=== PATIENT | female | born 2005 | race Caucasian/White ===

== ENCOUNTER 2024-05-23 10:27 | Outpatient (CLI) | payer OTHER, SELFPAY ==
--- NOTE | 2024-05-23 10:36 | EST_ITS ---
Patient Info Name: Pamela Molina Age: 18 years : 2005 Gender: Female Ht: 21 in Wt: 130 lbs BSA: 1.06 m2 Exam Date: 05/23/2024 10:45 AM Exam Location: [facility] Patient Status: Outpatient Admit Date: 05/23/2024 Staff Ordering Physician: Zenobia Galicia Attending Provider: Zenobia Galicia Exercise Technologist: Lis Melvin RDCS Exercise Physician: Selvin Thomas DO Exam Type: CA stress test treadmill Study Info Indications R07.9 - Chest pain, unspecified A treadmill exercise stress test was performed. Summary 1. 1. Negative [place] exercise stress test for ischemic ST changes by ECG criteria. 2. 2. Good functional capacity, achieving 12 METs of workload. 3. 3. Appropriate HR response to exercise. 4. 4. Appropriate HR recovery at 1 minute post exercise. 5. 5. No imaging with stress testing. 6. 6. Patient informed of the above results. Protocol: [place] Stress ECG Details Stage: REST Duration (min): 1 min : 40 sec Speed (mph): 0.0 Grade (%): 0 HR (bpm): 66 SBP (mmHg): 104 DBP (mmHg): 72 METS: --- Stage: REST Duration (min): 21 min : 45 sec Speed (mph): 0.0 Grade (%): 0 HR (bpm): 82 SBP (mmHg): 104 DBP (mmHg): 72 METS: --- Stage: STAGE 1 Duration (min): 1 min : 0 sec Speed (mph): 1.7 Grade (%): 10 HR (bpm): 105 SBP (mmHg): 104 DBP (mmHg): 72 METS: --- Stage: STAGE 1 Duration (min): 2 min : 0 sec Speed (mph): 1.7 Grade (%): 10 HR (bpm): 109 SBP (mmHg): 104 DBP (mmHg): 72 METS: --- Stage: STAGE 1 Duration (min): 3 min : 0 sec Speed (mph): 1.7 Grade (%): 10 HR (bpm): 110 SBP (mmHg): 100 DBP (mmHg): 63 METS: --- Stage: STAGE 2 Duration (min): 1 min : 0 sec Speed (mph): 2.5 Grade (%): 12 HR (bpm): 123 SBP (mmHg): 100 DBP (mmHg): 63 METS: --- Stage: STAGE 2 Duration (min): 2 min : 0 sec Speed (mph): 2.5 Grade (%): 12 HR (bpm): 123 SBP (mmHg): 122 DBP (mmHg): 75 METS: --- Stage: STAGE 2 Duration (min): 3 min : 0 sec Speed (mph): 2.5 Grade (%): 12 HR (bpm): 125 SBP (mmHg): 122 DBP (mmHg): 75 METS: --- Stage: STAGE 3 Duration (min): 1 min : 0 sec Speed (mph): 3.4 Grade (%): 14 HR (bpm): 143 SBP (mmHg): 117 DBP (mmHg): 69 METS: --- Stage: STAGE 3 Duration (min): 2 min : 0 sec Speed (mph): 3.4 Grade (%): 14 HR (bpm): 151 SBP (mmHg): 117 DBP (mmHg): 69 METS: --- Stage: STAGE 3 Duration (min): 3 min : 0 sec Speed (mph): 3.4 Grade (%): 14 HR (bpm): 156 SBP (mmHg): 184 DBP (mmHg): 89 METS: --- Stage: STAGE 4 Duration (min): 1 min : 0 sec Speed (mph): 4.2 Grade (%): 16 HR (bpm): 170 SBP (mmHg): 184 DBP (mmHg): 89 METS: --- Stage: STAGE 4 Duration (min): 1 min : 9 sec Speed (mph): 4.2 Grade (%): 16 HR (bpm): 171 SBP (mmHg): 184 DBP (mmHg): 89 METS: --- Stage: RECOVERY Duration (min): 0 min : 50 sec Speed (mph): 0.0 Grade (%): 0 HR (bpm): 153 SBP (mmHg): 184 DBP (mmHg): 89 METS: --- Stage: RECOVERY Duration (min): 1 min : 50 sec Speed (mph): 0.0 Grade (%): 0 HR (bpm): 97 SBP (mmHg): 138 DBP (mmHg): 84 METS: --- Stage: RECOVERY Duration (min): 2 min : 50 sec Speed (mph): 0.0 Grade (%): 0 HR (bpm): 111 SBP (mmHg): 129 DBP (mmHg): 80 METS: --- Stage: RECOVERY Duration (min): 3 min : 50 sec Speed (mph): 0.0 Grade (%): 0 HR (bpm): 93 SBP (mmHg): 129 DBP (mmHg): 80 METS: --- Stage: RECOVERY Duration (min): 4 min : 50 sec Speed (mph): 0.0 Grade (%): 0 HR (bpm): 90 SBP (mmHg): 103 DBP (mmHg): 79 METS: --- Stage: RECOVERY Duration (min): 5 min : 1 sec Speed (mph): 0.0 Grade (%): 0 HR (bpm): 94 SBP (mmHg): 103 DBP (mmHg): 79 METS: --- Rest HR: 82 bpm Peak HR: 171 bpm Rest Sys BP: 104 mmHg Peak Sys BP: 184 mmHg Max Pred HR: 200 bpm % Max Pred HR: 86 % Target HR: 170 bpm Max RPP: 31,464 bpm*mmHg Shepard Score: 1 Termination Reason: Reached target heart rate or workload Cardiac Symptoms: Shortness of breath, Chest pain Max ST Seg Deviation: 1.80 mm Total Time: 10 min : 9 sec Rest Cheema BP: 72 mmHg Peak Cheema BP: 89 mmHg Angina Score: None Total METS: 12.1 Resting ECG Sinus rhythm. Stress ECG No ST changes. Arrhythmias None. Report Signatures
[2024-05-23 11:11] LABS: Mean Corpuscular HGB Conc 34.2 g/dl (32-36); Mean Corpuscular Hemoglobin 29.5 pg (26-34); Mean Corpuscular Volume 86.4 fl (80-100); Mean Platelet Volume 10.3 fl (7.4-10.4); Platelet Count Result 154 k/mm3 (150-375); Red Cell Distribution Width 12.3 % (11.5-14.5); White Blood Count 4.9 K/mm3 (4.5-10.0)
[2024-05-23 11:24] LABS: Alanine Aminotransferase 14 U/L (6-35); Albumin Level 4.6 g/dL (3.5-5.1); Alkaline Phosphatase 34 U/L (38-126); Anion Gap 9 mmol/L (4-12); Aspartate Amino Transferase 22 U/L (14-36); Bilirubin,Total 0.5 mg/dL (0.2-1.3); Blood Urea Nitrogen 9 mg/dL (7-17); Calcium 9.3 mg/dL (8.4-10.2); Carbon Dioxide 27 mmol/L (22-30); Chloride 103 mmol/L (98-107); Cholesterol 139 mg/dL (0-200); Estimated Glomerular Filt Rate > 60; Glucose 97 mg/dL (65-110); HDL Direct 52 mg/dL; Potassium 3.5 mmol/L (3.4-5.0); Sodium 139 mmol/L (137-145); Triglycerides 42 mg/dL (<150)
[2024-05-23 11:34] LABS: LDL Cholesterol Direct 69 mg/dL
[2024-05-23 11:36] LABS: Vitamin D 25 Hydroxy 31.8 ng/mL
--- OUTSIDE RECORDS SUMMARY | 2024-05-23 12:08 | XMS_ITS | Referral Summary ---
Author Organization [facility] Address [address] [place] [address] Care Team Providers Care Stable Attendant Name Role Phone Jose Florentino MD Primary Care Provider Allergies No known active allergies Medications ketorolac (TORADOL) 10 mg tablet Take 1 tablet (10 mg total) by mouth every 6 (six) hours as needed for pain 20 tablet 4 Active ciprofloxacin-d exAMETHasone (CIPRODEX) otic suspensionIndic ations:Acute swimmer's ear of both sides 7 drops into EACH EAR, NOT EYE, twice daily for 10 days 7.5 mL 1 4 Active Additional Information Patient not taking.Reported on 04/06/2023 Active Problems Problem Noted Date Diagnosed Date Acute swimmer's ear of both sides 03/29/2023 Assessment & Plan (04/06/2023 9:32 AM MACHINE SILVER STRIPPER): Avoid ear cleaning techniques Avoid water to ears Finish oral antibiotics Continue ear drops in the Left ear for one more week Follow up as needed Homemade swimmer's ear recipe provided Assessment & Plan (03/29/2023 11:18 AM MACHINE SILVER STRIPPER): Increase Ciprodex drops to 7-10 drops into both ears Continue Cipro tablets twice daily with a meal Avoid ear cleaning techniques Avoid water to ears Consider Tylenol 500 mg with Ibuprofen 400 mg every 4-6 hours for pain Follow up in one week Social History Tobacco Use Types Packs/Day Years Used Date Smoking Tobacco: Never Tobacco Cessation:Counseling Given: Not Answered Personal Safety Answer Date Recorded Have you ever been in or are you currently in a harmful physical or emotional relationship or is someone making you feel afraid or unsafe? Denies 03/27/2023 Comments No Sex and Gender Information Value Date Recorded Sex Assigned at Not on file Legal Sex Female 9:09 AM MACHINE SILVER STRIPPER Gender Identity Not on file Sexual Orientation Not on file Last Filed Vital Signs Vital Sign Reading Time Taken Comments Blood Pressure 111/76 04/06/2023 9:17 AM MACHINE SILVER STRIPPER Pulse 69 04/06/2023 9:17 AM MACHINE SILVER STRIPPER Temperature 36.5 C (97.7 F) 04/06/2023 9:17 AM MACHINE SILVER STRIPPER Respiratory Rate 16 03/27/2023 12:54 PM MACHINE SILVER STRIPPER Oxygen Saturation 98% 04/06/2023 9:17 AM MACHINE SILVER STRIPPER Inhaled Oxygen Concentration - - Weight 61.4 kg (135 lb 6.4 oz) 04/06/2023 9:17 A M MACHINE SILVER STRIPPER Height 162.6 cm (5' 4.02 ) 04/06/2023 9:17 AM CS T Body Mass Index 23.23 04/06/2023 9:17 AM MACHINE SILVER STRIPPER Plan of Treatment Not on file Insurance Care Teams Stable Attendant Relationship Specialty Start Date End Date Jose Florentino MD [address] [place] [address] PCP - General Pediatrics 03/27/23
--- OUTSIDE RECORDS SUMMARY | 2024-05-23 12:08 | XMS_ITS | Clinical Summary ---
Author Organization [facility] Address [address] [place] [address] Care Team Providers Care Design Coordinator Name Role Phone Jose Florentino MD Primary [...] 03/29/2023 Assessment & Plan (04/06/2023 9:32 AM QUARRY WORKER): Avoid ear cleaning techniques Avoid water to ears Finish oral antibiotics Continue ear drops in the Left ear for one more week Follow up as needed Homemade swimmer's ear recipe provided Assessment & Plan (03/29/2023 11:18 AM QUARRY WORKER): Increase Ciprodex drops to 7-10 drops into both ears Continue Cipro tablets twice daily with a meal Avoid ear cleaning techniques Avoid water to ears Consider Tylenol 500 mg with Ibuprofen 400 mg every 4-6 hours for pain Follow up in one week Surgical History Surgery Date Site/Laterality Comments TONSILECTOMY, ADENOIDECTOMY, BILATERAL MYRINGOTOMY AND TUBES Social History Tobacco Use Types Packs/Day Years [...] on file Legal Sex Female 9:09 AM QUARRY WORKER Gender Identity Not on file Sexual Orientation Not on file Obstetrics History Last Filed Vital Signs Vital Sign Reading Time Taken Comments Blood Pressure 111/76 04/06/2023 9:17 AM QUARRY WORKER Pulse 69 04/06/2023 9:17 AM QUARRY WORKER Temperature 36.5 C (97.7 F) 04/06/2023 9:17 AM QUARRY WORKER Respiratory Rate 16 03/27/2023 12:54 PM QUARRY WORKER Oxygen Saturation 98% 04/06/2023 9:17 AM QUARRY WORKER Inhaled Oxygen Concentration - - Weight 61.4 kg (135 lb 6.4 oz) 04/06/2023 9:17 A M QUARRY WORKER Height 162.6 cm (5' 4.02 ) 04/06/2023 9:17 AM CS T Body Mass Index 23.23 04/06/2023 9:17 AM QUARRY WORKER Plan of Treatment Health Maintenance Due Date Last Done Comments Depression Screening 2005 Hepatitis C Screening 2005 HPV Vaccines (1 - 3-dose series) 05/25/2018 Regular Well Visit/Exam 18-64 05/25/2021 Influenza Vaccine (#1) 2023 , 01/11/2019, 01/05/2010, Additional history exists DTaP/Tdap/Td Vaccine (7 - Td or Tdap) 10/09/2024 10/09/2014, 10/15/2008, 01/24/2005, Additional history exists Hepatitis B Screening Completed 05/10/2004 , [birth year], Additional history exists Pneumococcal vaccine <65 Aged Out 005, 2005, 2005 No longer eligible based on patient's age to complete this topic Varicella Vaccines Completed 10/15/2008, 08/03/2004 Meningococcal Vaccine Completed 12/31/2020, 015 Meningococcal B Vaccine Completed 02/15/2021, 01/13 Insurance [facility] Care Teams Design Coordinator Relationship Specialty Start Date End Date Jose Florentino MD [address] [place] [address] PCP - General Pediatrics 03/27/23
--- OUTSIDE RECORDS SUMMARY | 2024-05-23 12:08 | XMS_ITS | Data Portability ---
Author Organization [facility] Address [address] [place] [address] Care Team Providers Care Traffic Sign Erection Supervisor Name Role Phone MALU FLORENTINO Primary Care Provider WENDI SINGH Liquor Runner Assessment No assessment recorded. Plan of Treatment Reminders Order Date Submit Date Provider Last Modified By Organization Details Last Modified Time Details Appointments None recorded. Lab None recorded. Referral None recorded. Procedures None recorded. Surgeries None recorded. Imaging XR, chest, 2 view 2020 021 [facility] (Radiology), [address] [facility] , [place], [address], 1 15:59:21 Medication Orders ibuprofen 600 mg tablet 2023 024 LEATHA [facility] #[id number], [address], [place], [id number], 4 16:15:53 Nexplanon 68 mg subdermal implant 2023 024 [facility] [facility] #99003, [address], [place], [place], [id number], 4 17:24:33 Lo Loestrin Fe 1 mg-10 mcg (24)/10 mcg (2) tablet 2022 023 [email or web address] [employer] [facility] #45625, [address], [place], [place], [id number], 4 12:23:13 medroxypr ogesteron e 10 mg tablet [email or web address] [place] [address] [employer] #[id number], [address], [place], [place], [id number], 3 12:52:55 ketoconaz ole 2 % topical cream 2020 021 [facility] #[id number], [address], [place], [place], [id number], 3 12:06:47 hydrocort isone 2.5 % topical ointment 2020 [facility] [employer] #23889, [address], [place], [place], [id number], 3 12:06:44 Patient TargetsNo targets recorded. Patient Instructions Encounter Date Encounter Id Patient Instructions Last Modified By Organization Details Last Modified Time 02/15/2021 [id number] dermatitis in children: care instructions [facility] Not available 02/15/2021 15:58:51 Reason for Referral None Reported. Problems Name Problem SNOMED Code Status Onset Date Resolution Date Notes Provider Name and Address Organization Details Recorded Time Dysmenor roscoe 249112668 Active 2022 WENDI SINGH MD Attn: Kevin moraes,[address] [place], [address], [facility] - [facility] 3 12:34:38 Break-th rough bleeding 70405771 Completed 202207/06/2023 Removal Reason: resolved WENDI SINGH MD Attn: Kevin moraes,[address] [place], [address], [facility] - [place] 4 12:59:43 Subcutan eous contrace ptive implant present 323320647 Active 2023 Nexplanon replaced 07/06/23 WENDI SINGH MD Attn: Kevin moraes,[address] [facility], [place], [address], [facility] - [place] 4 13:01:46 Problem Notes None recorded. Procedures Surgical History Date Name Laterality Status Provider Name and Address Organization Details Recorded Time 4 Control Implant Replacement completed WENDI SINGH MD Attn: Accounting,[address] [facility], [place], [address], [facility] - [facility] 07/06/2023 13:00:50 1 Control Implant Insertion completed Rafaela Krishnamurthy [place] - [facility] 06/30/2020 13:58:35 9 tonsilectomy/ad enoids completed Gillian Renee [place] - [place] 06/16/2020 11:21:01 9 Ear Tube completed Lianne Escobedo [place] - [place] 10/09/2014 15:27:47 Imaging Results None recorded. Procedure Notes None recorded. Medical Equipment None Reported. Allergies No known drug allergies Medications Name Sig Start Date Stop Date Status Note LastModified by Organization Details LastModified Time medroxyprog esterone 10 mg tablet TAKE 1 TABLET BY MOUTH EVERY DAY FOR 21 DAYS 03/09 completed Not Available Not Available Not Available cetirizine 10 mg tablet TAKE 1 TABLET BY MOUTH EVERY DAY 09/20 completed Not Available Not Available Not Available ciprofloxac in 500 mg tablet 07/05 completed Not Available Not Available Not Available ketorolac 10 mg tablet 07/05 completed Not Available Not Available Not Available ibuprofen 600 mg tablet Take 1 tablet 3 times a day by oral route with meal(s) for 14 days, for muscle pain. active Not Available Not Available No t Available hydrocortis one 2.5 % topical ointment APPLY THIN LAYER TOPICALLY TO THE AFFECTED AREA TWICE DAILY 09/20 completed Not Available Not Available Not Available ketoconazol e 2 % topical cream APPLY TOPICALLY TO THE AFFECTED AREA ONCE DAILY 09/20 completed Not Available Not Available Not Available fluticasone propionate 50 mcg/actuati on nasal spray,suspe nsion SHAKE LIQUID AND USE 1 SPRAY IN EACH NOSTRIL EVERY DAY 09/20 completed Not Available Not Available Not Available amoxicillin 875 mg-potassiu m clavulanate 125 mg tablet 07/05 completed Not Available Not Available Not Available ciprofloxac in 0.3 %-dexametha sone 0.1 % ear drops,suspe nsion 07/05 completed Not Available Not Available Not Available Lo Loestrin Fe 1 mg-10 mcg (24)/10 mcg (2) tablet TAKE 1 TABLET BY MOUTH EVERY DAY 07/05 completed Not Available Not Available Not Available Nexplanon 68 mg subdermal implant Inject 1 implant by subcutane ous route. 2023 active Not Available Not Available Not Avai lable Vitals Date Recorded Body temperature Heart rate Respiratory rate Body height Systolic blood pressure Diastolic blood pressure Provider Name and Address Organization Details Last Updated DateTime 1 98.2 [degF] 72 /min 16 /min 163.2 cm 108 mm[Hg] 70 mm[Hg] Lianne Lora [place] - [facility] 1 15:22:46 Date Recorded Body height Body mass index (BMI) Body mass index (BMI) Percentile per age and sex Body weight Body temperature Heart rate Systolic blood pressure Diastolic blood pressure Provider Name and Address Organization Details Last Updated DateTime 3 163.2 cm 22.9 kg/m2 64 % 94156.8 3 g 97.7 [degF] 79 /min 112 mm[Hg] 77 mm[Hg] Gillian Perry [place] - [facility] 3 12:04:47 Date Recorded Body height Body mass index (BMI) Body mass index (BMI) Percentile per age and sex Body weight Oxygen saturation Oxygen saturation in Arterial blood by Pulse oximetry Heart rate Respiratory rate Body temperature Systolic blood pressure Diastolic blood pressure Provider Name and Address Organization Details Last Updated DateTime 3 163.2 cm 23.1 kg/m2 65 % 25764.1 3 g 97 % 97 % 72 /min 12 /min 98.5 [degF] 108 mm[Hg] 71 mm[Hg] Dipti Calloway [place] - [facility] 3 12:27:48 Date Recorded Body height Body mass index (BMI) Percentile per age and sex Body mass index (BMI) Body weight Body temperature Oxygen saturation Oxygen saturation in Arterial blood by Pulse oximetry Heart rate Systolic blood pressure Diastolic blood pressure Provider Name and Address Organization Details Last Updated DateTime 4 163.2 cm 64 % 23.1 kg/m2 79403.7 7 g 97.9 [degF] 100 % 100 % 68 /min 114 mm[Hg] 76 mm[Hg] Gillian Renee MA [facility] 4 12:22:45 Date Recorded Body height Body mass index (BMI) Body mass index (BMI) Percentile per age and sex Body weight Heart rate Body temperature Systolic blood pressure Diastolic blood pressure Provider Name and Address Organization Details Last Updated DateTime 4 163.2 cm 23.3 kg/m2 66 % 91102.7 1 g 106 /min 98.7 [degF] 123 mm[Hg] 84 mm[Hg] Milly Lynch MA [facility] 4 09:51:11 Date Recorded Heart rate Provider Name an d Address Organization Details Last Updated DateTime 09/21/2023 70 /min WENDI SINGH MD Attn: Accounting,[address] [place], [address], [facility] 09/21/2023 10:04:41 Social History Question Answer Notes LastModified by Organizat ion Details LastModified Time Tobacco Smoking Status Never Smoker Lianne Escobedo MA null, [facility] 10/09/2014 15:27:47 What Is Your Level Of Alcohol Consumption? None Information not available 06/16/2020 Animal Exposure? Yes 2 Cats Informat ion not available 03/09/2023 Do You Wear A Helmet When Biking? No Information not available 01/13/2021 Are You Blind Or Do You Have Difficulty Seeing? Yes Glasses Information not available 03/09/2023 Are You Or Have You Been Involved With Bullying? No [email or web address] Information not available 10/09/2014 What Is Your Level Of Caffeine Consumption? Occasional Information not available 06/16/2020 What Type Of Bilingual Research Interviewer Do You Use? None Information not available 07/28/2020 In The 14 Days Before Symptom Onset, Have You Had Close Contact With A Laboratory-confir med COVID-19 While That Case Was Ill? No Information not available 06/16/2020 In The 14 Days Before Symptom Onset, Have You Had Close Contact With A Person Who Is Under Investigation For COVID-19 While That Person Was Ill? No Information not available 06/16/2020 Have You Been To An Area Known To Be High Risk For COVID-19? No Information not available 06/16/2020 Are You Currently Employed? Yes Information not available 06/16/2020 Are You Deaf Or Do You Have Serious Difficulty Hearing? No Information not available 03/09/2023 What Type Of Diet Are You Following? REGULAR [email or web address] Information not available 10/09/2014 What Is The Highest Grade Or Level Of School You Have Completed Or The Highest Degree You Have Received? [id number] Information not available 01/13/2021 What Is Your Occupation? [employer] Information not available 07/06/2023 Have There Been Any Changes To Your Family Or Social Situation? No Information no t available 07/28/2020 Are There Any Guns Present In Your Home? Yes [email or web address] Information not available 10/09/2014 What Is Your Home Situation? Mother Mom Information not available 09/21/2023 Do You Use Insect Repellent Routinely? Yes [email or web address] Information not available 10/09/2014 Car Seat Type Or Seat Belt? Seat Belt [email or web address] Information not available 10/09/2014 Parent Involvement? Both Parents Involved Information not available 10/09/2014 Riding In Car Front Seat? Yes [email or web address] Information not available 10/09/2014 What Was The Date Of Your Most Recent Tobacco Screening? 09/21/2023 Information not available 09/21/2023 How Many Children Do You Have? 0 Information not available 09/20/2022 What Is Your Parents' Marital Status? Information not available 10/09/2014 Do You Have Any Pets? Yes 2 Cats, 2 Dogs Information not available 07/28/2020 Pool Exposure No [email or web address] Information not available 10/09/2014 Do You Use Protection During Sex? Usually Information not available 09/20/2022 What Is Your Relationship Status? Single Information not available 06/16/2020 Do You Use Your Seat Belt Or Car Seat Routinely? Yes Information not available 06/16/2020 Are You Sexually Active? Yes Information not available 09/20/2022 Do You Have Any Siblings? 1 Brother, 1 Half Sis Information not available 10/09/2014 Do You Have Smoke And Carbon Monoxide Detectors In Your Home? Yes [email or web address] Information not available 10/09/2014 Are You Passively Exposed To Smoke? No [email or web address] Information no t available 10/09/2014 Do You Participate In Social Media? Yes Information not available 01/13/2021 Do You Feel Stressed (tense, Restless, Nervous, Or Anxious, Or Unable To Sleep At Night)? [id number] Information not available 06/16/2020 Do You Use Any Illicit Or Recreational Drugs? No Information not available 06/16/2020 Do You Use Sunscreen Routinely? Yes Information not available 10/09/2014 Has Tobacco Cessation Counseling Been Provided? No Information not available 09/20/2022 Year In School College Informatio n not available 03/09/2023 Do You Or Have You Ever Used Any Other Forms Of Tobacco Or Nicotine? No Information not available 06/16/2020 Sex: Female Functional Status Question Answer Note LastModified by Organization D etails LastModified Time Are you able to care for yourself? Yes Information n ot available 03/09/2023 What is your exercise level? None Information not available 03/09/2023 Mental Status None recorded. Family History Relationship Description Onset Age of this Age Resolved Age Notes LastModified by Organization Details LastModified Time Father No current problems or disability [email or web address] Not available 01/19 12:06:20 Mother No current problems or disability Not available 01/19 12:06:20 Medical History Condition Response Coronary Artery Disease N Other N High Blood Pressure N Blood Diseases N Breast Cancer N Lung Disease N Depression N Blood Clots N Developmental or Behavioral Disorders N Breast Problem N Premature N Anesthesia Complications N Headaches/Migraines N Anxiety Disorder N Muscle, Joint, or Bone Problems N Vision or Eye Problems N Head Injury/Concussion N Infertility N Polyps N Acid Reflux (GERD) N Cancer N Stroke N ADHD N Endometriosis N Bladder or Kidney Problems N High Cholesterol N Liver Disease N Schizophrenia N Headaches N Ear or Hearing Problems N Thyroid Problems N Kidney or Bladder Problems N GI Problems N Acne N Eating Disorder N Skin Problems N Anemia N Constipation N Heart Attack ([place]) N Diabetes N Ovarian Cancer N Bedwetting N Blood Transfusions N Heart Problems/Murmur N Seizures/Epilepsy N Abuse/Domestic Violence N Asthma N Allergies N Substance Abuse N Hepatitis N Heart Disease N Pre-Eclampsia N Chicken Pox N Heart Failure N Autism Spectrum Disorder (ASD) N Osteoporosis N Gynecological History Statement/Question Response Flow Light Date of LMP 06/25/2023 HPV Vaccine N Duration of Flow (days) 1 Age at Menarche 10 Current Control Method Implant Frequency of Cycle (Q days) Sexually Active? Y Menses Monthly Yes Date of Last Pap Smear LMP Approximate Desired Control Method Implant Obstetrics History GPAL:G 0 P 0 0 0 0 Type Value Multiple Births 0 Full Term 0 Induced 0 Spontaneous 0 Premature 0 Living 0 Ectopics 0 Total 0 Immunizations Vaccine Type Date Status Note Provider Nam e and Address Organization Details Recorded Time meningococcal MCV4P 1 [place] [facility] 01/13/2021 15:29:03 Hep B, adolescent or pediatric 4 [place] [facility] 10/09/2014 08:35:57 Hib, unspecified formulation 5 [place] [facility] 10/09/2014 08:35:57 DTaP 5 [place] [facility] 10/09/2014 08:35:57 pneumococcal conjugate PCV 7 4 [place] [facility] 10/09/2014 08:35:57 IPV 9 [place] [facility] 10/09/2014 08:35:57 DTaP 4 [place] [facility] 10/09/2014 08:35:57 pneumococcal conjugate PCV 7 5 completed Lianne Escob[place] [facility] 10/09/2014 08:35:57 DTaP-Hep B-IPV 4 completed L[place] [facility] 10/09/2014 08:35:57 varicella 5 completed Linane [place] [facility] 10/09/2014 08:35:57 pneumococcal conjugate PCV 7 4 completed Lian[place] [facility] 10/09/2014 08:35:57 Hep B, adolescent or pediatric 5 completed [place] [facility] 10/09/2014 08:35:57 Hib, unspecified formulation 4 [place] [facility] 10/09/2014 08:35:57 DTaP 5 completed [place] [facility] 10/09/2014 08:35:57 Hep A, ped/adol, 2 dose 6 completed L[place] [facility] 10/09/2014 08:35:57 Hep B, adolescent or pediatric 4 completed [place] [facility] 10/09/2014 08:35:57 MMR 5 [place] [facility] 10/09/2014 08:35:57 MMR 9 completed [place] [facility] 10/09/2014 08:35:57 IPV 5 completed [place] [facility] 10/09/2014 08:35:57 Hib, unspecified formulation 5 [place] [facility] 10/09/2014 08:35:57 DTaP-IPV 9 completed [place] [facility] 10/09/2014 08:35:57 varicella 9 completed [place] [facility] 10/09/2014 08:35:57 IPV 4 completed SOFI Ab[place]to, [place] - [place] 10/09/2014 08:35:57 Hep A, ped/adol, 2 dose 7 [place] SOFI [place] [facility] 10/09/2014 08:35:57 Hib, unspecified formulation 4 completed SOFI [place] 10/09/2014 08:35:57 Influenza, split virus, quadrivalent, preservative 9 completed Not Available Count includes the [facility] 03/30/2019 02:51:03 Tdap 5 completed Not Available Count includes the [facility] 03/30/2019 02:39:50 Meningococcal MCV4O 5 completed Not Available Count includes the [facility] 03/30/2019 02:42:05 meningococcal B, OMV 1 completed SOFI Ab[place] 01/13/2021 17:08:44 Influenza, split virus, quadrivalent, PF 1 [place] SOFI [place] [facility] 01/13/2021 17:08:44 meningococcal B, OMV 1 completed SOFI Simpson, [place] [facility] 02/15/2021 17:25:27 Past Encounters Encounter ID Performer Location Encounter Start Date Encounter Closed Date Diagnosis/Indication Diagnosis SNOMED-CT Code Diagnosis ICD10 Code Diagnosis Note [id number] SO[facility] Aburto (Peds) [address] [place] [address] 10/09/2014 14:53:19 10/09/2014 17:38:53 Well child [id number] discussed routine children's ministry director discussed safety and school performanc e discussed healthy weight with diet and exercise [id number] MD Ameena Roblero (Peds) [address] [place] [address] 01/19/2017 11:53:15 01/23/2017 17:39:40 Upper respiratory infection 12639589 J06.9 rest, tylenol prn, humidifier , vitamin c, etc [id number] [facility] (Peds) [address] [place] [address] 07/03/2017 15:02:01 07/04/2017 11:26:23 Well child 312020916 Z00.129 discussed routine children's ministry director discussed safety and school performanc e discussed healthy weight with diet and exercise [id number] Brady Florentino MD [facility] (Peds) [address] [place] [address] 11/14/2017 14:10:08 11/15/2017 10:08:35 Upper respiratory infection 65250245 J06.9 rest, tylenol prn, humidifier , vitamin c, etc [id number] Jerson Hope [facility] (Peds) [address] [place] [address] 01/11/2019 15:34:57 01/14/2019 12:50:59 Contact dermatitis 53669475 L25.9 resolving. Active or passive immunization 381167378 Z23 [id number] Gillian Renee MA [facility] (JOINER HELPER) [address] [place] [address] 06/16/2020 11:03:13 06/17/2020 08:30:15 Contraception care management 807057183 Z30.9 control options discussed. Pt. wants either the Depo or pills. UPT was negative today. Pt. to call with decision re pills or Depo. If Depo, RTO 2 weeks for repeat UPT and Depo shot. If pills, pt. to start the Monday after her next period, dwp and mom. [id number] Rafaela Krishnamurthy [facility] (JOINER HELPER) [address] [place] [address] 06/30/2020 11:33:32 07/01/2020 09:59:54 Insertion of subcutaneous contraceptive 082023795 Z30.9 Benefits, risks, and alternativ es to Nexplanon insertion d/w pt. Pt. expressed understand ing. All pt. questions answered. Consent signed and in chart. UPT was negative 2 weeks ago and today. Nexplanon inserted per protocol and without difficulty . Please see procedure note for details. Pt. tolerated the procedure well. RTO 2 weeks for follow-up. [id number] Jerson Galvanmarshall Lindquist (Peds) [address] [place] [address] 07/28/2020 11:46:19 08/03/2020 04:29:14 Allergic rhinitis 83694984 J30.9 Impacted c erumen in left ear 6744436854 034759 H61.22 [id number] MD Ameena Roblero (Peds) [address] [place] [address] 01/13/2021 15:22:13 01/14/2021 11:48:52 Immunization due 212511866 Z28.3 Well child visit 1224746 09 Z00.129 discussed routine adolescent carediscus sed safety and school performanc ediscussed healthy weight declined covid Diet education 93946596 Z71.3 Exercises education, guidance, and counseling 420544365 Z71.82 [id number] MD Ameena Roblero (Peds) [address] [place] [address] 02/15/2021 15:16:13 02/17/2021 07:23:54 Immunization due 633106765 Z28.3 Contact dermatitis 21850 004 L25.9 Tinea corporis 00596288 B35.4 Mass of chest wall 56515 4000 R22.2 left lower rib cage, non painful, suspect it's the shape of pt's ribs. no h/o trauma [id number] MD Ameena PIÑA (JOINER HELPER) [address] [place] [address] 09/20/2022 11:57:31 09/22/2022 10:42:59 Break-through bleeding 03032069 N92.1 - Will trial medroxypro gesterone 10 mg daily x3 weeks to suppress bleeding Dysmenorrhea 318419576 N 94.6 - Recommende d ibuprofen 600 mg every 6 hours with food at start of menstrual bleeding to decrease pain as well as duration of bleeding Surveillan ce of subcutaneous contraceptive implant 908248571 Z30.46 - Return to clinic 06/2023 for Nexplanon removal and replacemen t [id number] MD Ameena PIÑA (JOINER HELPER) [address] [place] [address] 03/09/2023 12:09:45 03/10/2023 11:44:01 Break-through bleeding 77912338 N92.1 - Will manage unschedule d bleeding on Nexplanon with OCPs until able to come in for Nexplanon removal and replacemen t Dysmenorrhea 731168597 N 94.6 - Recommende d ibuprofen 600 mg every 6 hours with food at start of menstrual bleeding to decrease pain as well as duration of bleeding [id number] MD Jodi PIÑAhalto (JOINER HELPER) [address] [place] [address] 07/06/2023 12:07:17 07/10/2023 12:29:59 Insertion of subcutaneous contraceptive 192762129 Z30.46 - Nexplanon removed and replaced without incident- Return to clinic in 3 years for removal/re placement [id number] MD Ameena PIÑA (JOINER HELPER) [address] [place] [address] 09/21/2023 09:41:39 10/11/2023 12:57:31 Chest wall pain 679783931 R07.89 - Tenderness to palpation reassuring for MSK etiology - likely pectoralis muscle strain- Suspect patient's mechanics with [employer] job were altered shortly after Nexplanon was placed, as she was trying to avoid hitting the implant, and now functional adaptation s have persisted and are causing strain- Advised warm baths, heating pads PRN and ibuprofen 600 mg q6h with food PRN- If no improvemen t after 2 weeks, may refer to PT for further evaluation and treatment Health Concerns Section Related Observation LastModified by Organization Detai ls LastModified Time None Recorded Concern Status LastModified by Organization Details LastModified Time None Recorded Advance Directives Directive None Recorded Payers Encounter Date Sequence Insurance Name Policy Number Policy Braxton Covered Member ID Braxton Member ID Guarantor Name 02/15/2021 1 [place] [employer] Pamela Molina [id number] Pamela Molina 09/20/2022 1 [facility] (MEDICAID HMO) [id number] Pamela Molina [id number] Pamela Molina 03/09/2023 1 [facility] (MEDICAID HMO) [id number] Pamela Molina [id number] Pamela Molina 07/06/2023 1 [facility] (MEDICAID HMO) [id number] Pamela Molina [id number] Pamela Molina 09/21/2023 1 [facility] (MEDICAID HMO) [id number] Pamela Molina [id number] Pamela Molina Notes Date Note Type Note Provider Name and Address Organization Details Recorded Time 02/15/2021 text/html 15 year old femcarmen le sick visit. Reports of circular rash on left ankle, left calf and right elbow [id number]. lesions are non painful and not puritic. No known new exposures. pt also has concernes about mass at bottom of left rib cage that has always been present and is non painful. No trauma. hs not tried any measures for the rashes. Malu Florentino MD Attn: Accounting,[address] [facility], [place], [address], [facility] 02/15/2021 15:59:42 09/20/2022 text/html Nexplanon break-through bleeding- Nexplanon placed 06/30/20- No periods for first 2 years on Nexplanon- Bleeding like a regular period multiple times a month or for very long periods of time since late February 2022/early March 2022- Has been tracking bleeding since April: 04/13-04/22, 04/26-04/30, 05/09-05/13, 05/22-05/29, 06/21-06/27, 07/04-07/10, 07/18-07/21, 08/03, 08/20-08/30, 09/03-09/06, 09/15-present- Periods are also painful but does not use pain medicine WENDI SINGH MD Attn: Accounting,[address] [facility], [place], [address], [facility] 09/20/2022 12:35:12 03/09/2023 text/html Breakthrough bleeding on Nexplanon- No bleeding on MDPA, then started period when medication ran out. Alvord that mood was better on MDPA as well.- Bleeding days: 02/01 to 02/11, 02/13 to 02/25, 02/28 to 03/03- On days with bleeding, feels like a normal period- Right now having brown discharge- Still having bad cramping and can predict when bleeding will start again- Not taking pain medication for cramping unless unbearable. Takes ibuprofen 1 pill when needed.- No history of migraines WENDI SINGH MD Attn: Accounting,[address] [facility], [place], [address], [facility] 03/09/2023 14:16:39 07/06/2023 text/html Nexplanon replacement- Nexplanon due for replacement WENDI SINGH MD Attn: Accounting,[address] [facility], [place], [address], [facility] 07/06/2023 13:03:27 09/21/2023 text/html Left chest pain- Pain in upper left side of chest and started when Nexplanon was put in in June. No other changes in diet or exercise since then.- Pain stays in upper left side.- Hurts or is uncomfortable for about 30 seconds and happens couple times a week- Sharp pain sometimes, sometimes dull, and achy and goes away.- Tried nothing to make it better- Found no patterns to triggers. Does admit to feeling pain more when calm or about to go to bed.- Did not occur the first time around.- No numbness or tingling, or radiation to arm, back, or center of chest.- Questions any correlation to heartburn- Does not notice any sx when physically active, but notices it more when relaxed- Maybe feels heart beating faster but could be anxiety or overthinking HPI documented by Robert Hirsch, S-III WENDI SINGH MD Attn: Accounting,[address] [facility], [place], [address], [facility] 10/09/2023 16:29:36 OBGyn Episode No OBEpisode recorded.
== END 2024-05-23 10:28 | disposition home or self-care (01) ==
LOC: ANHCARD 10:28
PROVIDERS: PCP Nurse Practitioner; Visit Provider Nurse Practitioner
DX: R07.9 Chest pain, unspecified (principal); E55.9 Vitamin D deficiency, unspecified; Z76.89 Persons encountering health services in other specified circumstances
CPT/HCPCS: 36415; 80053; 80061; 82306; 84443; 85027; 93017

== ENCOUNTER 2024-05-27 14:45 | Outpatient (CLI) | payer OTHER, SELFPAY ==
--- OUTSIDE RECORDS SUMMARY | 2024-05-27 17:26 | XMS_ITS | Data Portability ---
Author Organization [facility] Address [address] [place] [address] Care Team Providers Care Revolving Inventory Clerk Name Role Phone MALU FLORENTINO Primary Care Provider WENDI SINGH Safety Manager Assessment No assessment recorded. Plan of Treatment Reminders Order Date Submit Date Provider Last Modified By Organization Details Last Modified Time Details Appointments None recorded. Lab None recorded. Referral None recorded. Procedures None recorded. Surgeries None recorded. Imaging XR, chest, 2 view 2020 021 [facility] Rosa [facility] (Radiology), [address] [facility] , [place], [address], 1 15:59:21 Medication Orders ibuprofen 600 mg tablet 2023 024 LEATHA [facility] #44887, [address], [place], [id number], 4 16:15:53 Nexplanon 68 mg subdermal implant 2023 024 [email or web address] [facility] #27790, [address], [place], [place], [id number], 4 17:24:33 Lo Loestrin Fe 1 mg-10 mcg (24)/10 mcg (2) tablet 2022 023 [email or web address] [facility] #68956, [address], [place], [place], [id number], 4 12:23:13 medroxypr ogesteron e 10 mg tablet [email or web address] [place] [address] [facility] #73015, [address], [place], [place], [id number], 3 12:52:55 ketoconaz ole 2 % topical cream [address] [facility] #99116, [address], [place], [place], [id number], 3 12:06:47 hydrocort isone 2.5 % topical ointment [address] [facility] #88106, [address], [place], [place], [id number], 3 12:06:44 Patient TargetsNo targets recorded. Patient Instructions Encounter Date Encounter Id Patient Instructions Last Modified By Organization Details Last Modified Time 02/15/2021 [id number] dermatitis in children: care instructions [facility] Not available 02/15/2021 15:58:51 Reason for Referral None Reported. Problems Name Problem SNOMED Code Status Onset Date Resolution Date Notes Provider Name and Address Organization Details Recorded Time Dysmenor roscoe 471579467 Active 2022 WENDI SINGH MD Attn: Kevin moraes,[address] [place], [address], [facility] - [facility] 3 12:34:38 Break-th rough bleeding 20260804 Completed 202207/06/2023 Removal Reason: resolved WENDI SINGH MD Attn: Kevin moraes,[address] [place], [address], [facility] - SI 4 12:59:43 Subcutan eous contrace ptive implant present 109654304 Active 2023 Nexplanon replaced 07/06/23 WENDI SINGH MD Attn: Kevin moraes,[address] [facility], [place], [address], [facility] - SI 4 13:01:46 Problem Notes None recorded. Procedures Surgical History Date Name Laterality Status Provider Name and Address Organization Details Recorded Time 4 Control Implant Replacement completed WENDI SINGH MD Attn: Accounting,[address] [facility], [place], [address], [facility] - [facility] 07/06/2023 13:00:50 1 Control Implant Insertion completed Rafaela Krishnamurthy PA - [facility] 06/30/2020 13:58:35 9 tonsilectomy/ad enoids completed Gillian Renee MA PA - [facility] 06/16/2020 11:21:01 9 Ear Tube completed Lianne Escobedo MA PA - [facility] 10/09/2014 15:27:47 Imaging Results None [...] 3 163.2 cm 22.9 kg/m2 64 % 75636.8 3 g 97.7 [degF] 79 /min 112 mm[Hg] 77 mm[Hg] Gillian [place] - [facility] 3 12:04:47 Date Recorded Body height Body mass index (BMI) Body mass index (BMI) Percentile per age and sex Body weight Oxygen saturation Oxygen saturation in Arterial blood by Pulse oximetry Heart rate Respiratory rate Body temperature Systolic blood pressure Diastolic blood pressure Provider Name and Address Organization Details Last Updated DateTime 3 163.2 cm 23.1 kg/m2 65 % 04100.1 3 g 97 % 97 % 72 [...] 4 163.2 cm 64 % 23.1 kg/m2 82897.7 7 g 97.9 [degF] 100 % 100 % 68 /min 114 mm[Hg] 76 mm[Hg] Gillian Renee MA [facility] 4 12:22:45 Date Recorded Body height Body mass index (BMI) Body mass index (BMI) Percentile per age and sex Body weight Heart rate Body temperature Systolic blood pressure Diastolic blood pressure Provider Name and Address Organization Details Last Updated DateTime 4 163.2 cm 23.3 kg/m2 66 % 47352.7 1 g 106 /min 98.7 [degF] 123 mm[Hg] 84 mm[Hg] Milly Lynch MA [facility] 4 09:51:11 Date Recorded Heart rate Provider Name an d Address Organization Details Last Updated DateTime 09/21/2023 70 /min WENDI SINGH MD Attn: Accounting,[address] [place], [address], [facility] 09/21/2023 10:04:41 Social History Question Answer Notes LastModified by Organizat ion Details LastModified Time Tobacco Smoking Status Never Smoker Lianne Escobedo MA null, [facility] 10/09/2014 15:27:47 What Is Your Level Of Alcohol Consumption? None Information not available 06/16/2020 Animal Exposure? Yes 2 Cats Informat ion not available 03/09/2023 Do You Wear A Helmet When Biking? No Information not available 01/13/2021 Are You Blind Or Do You Have Difficulty Seeing? Yes Glasses Information not available 03/09/2023 Are You Or Have You Been Involved With Bullying? No Information not available 10/09/2014 What Is Your Level Of Caffeine Consumption? Occasional Information not available 06/16/2020 What Type Of Oil Mixer Do You Use? None Information not available [...] Type Of Diet Are You Following? REGULAR [email or web address] Information not available 10/09/2014 What Is The Highest Grade Or Level Of School You Have Completed Or The Highest Degree You Have Received? [id number] Information not available 01/13/2021 What Is Your Occupation? [employer] Information not available 07/06/2023 Have There Been Any Changes To Your Family Or Social Situation? No Information no t available 07/28/2020 Are There Any Guns Present In Your Home? Yes [email or web address] Information not available 10/09/2014 What Is Your Home Situation? Mother Mom Information not available 09/21/2023 Do You Use Insect Repellent Routinely? Yes [email or web address] Information not available 10/09/2014 Car Seat Type Or Seat Belt? Seat Belt [email or web address] Information not available 10/09/2014 Parent Involvement? Both Parents Involved [email or web address] Information not available 10/09/2014 Riding In Car Front Seat? Yes [email or web address] Information not available 10/09/2014 What Was The Date Of Your Most Recent Tobacco Screening? 09/21/2023 Information not available 09/21/2023 How Many Children Do You Have? 0 Information not available 09/20/2022 What Is Your Parents' Marital Status? Information not available 10/09/2014 Do You Have Any Pets? Yes 2 Cats, 2 Dogs Information not available 07/28/2020 Pool Exposure No [email or web address] Information not available 10/09/2014 Do You Use Protection During Sex? Usually Information not available 09/20/2022 What Is Your Relationship Status? Single Information not available 06/16/2020 Do You Use Your Seat Belt Or Car Seat Routinely? Yes Information not available 06/16/2020 Are You Sexually Active? Yes Information not available 09/20/2022 Do You Have Any Siblings? 1 Brother, 1 Half Sis [email or web address] Information not available 10/09/2014 Do You Have Smoke And Carbon Monoxide Detectors In Your Home? Yes [email or web address] Information not available 10/09/2014 Are You Passively Exposed To Smoke? No [email or web address] Information no t available 10/09/2014 Do You Participate In Social Media? Yes Information not available 01/13/2021 Do You Feel Stressed (tense, Restless, Nervous, Or Anxious, Or Unable To Sleep At Night)? [id number] Information not available 06/16/2020 Do You Use [...] Time Father No current problems or disability [email or web address] Not available 01/19 12:06:20 Mother No current problems or disability [email or web address] Not available 01/19 12:06:20 Medical History Condition [...] N Anemia N Constipation N Heart Attack ([place]) N Diabetes N Ovarian Cancer N Bedwetting [...] - [facility] 10/09/2014 08:35:57 varicella 5 completed Lianne Escobedo [place] null, [place] [...] 10/09/2014 08:35:57 IPV 4 completed SOFI Aburto, PA - [facility] 10/09/2014 08:35:57 Hep A, ped/adol, 2 dose 7 completed SOFI Aburto, PA - [facility] 10/09/2014 08:35:57 Hib, unspecified formulation 4 completed SOFI Aburto, PA - [facility] 10/09/2014 08:35:57 Influenza, split virus, quadrivalent, preservative 9 completed Not Available [facility] 03/30/2019 02:51:03 Tdap 5 completed Not Available [facility] 03/30/2019 02:39:50 Meningococcal MCV4O 5 completed Not Available [facility] 03/30/2019 02:42:05 meningococcal B, OMV 1 completed SOFI Aburto, PA - [facility] 01/13/2021 17:08:44 Influenza, split virus, quadrivalent, PF 1 completed SOFI Aburto, PA - [facility] 01/13/2021 17:08:44 meningococcal B, OMV 1 completed SOFI Simpson, PA - [facility] 02/15/2021 17:25:27 Past Encounters Encounter ID Performer Location Encounter Start Date Encounter Closed Date Diagnosis/Indication Diagnosis SNOMED-CT Code Diagnosis ICD10 Code Diagnosis Note [id number] SOFI Aburto (Peds) [address] [place] [address] 10/09/2014 14:53:19 10/09/2014 17:38:53 Well child [id number] 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 safety and school performanc e discussed healthy weight with diet and exercise [id number] MD Ameena Roblero (Peds) [address] [place] [address] 01/19/2017 11:53:15 01/23/2017 17:39:40 Upper respiratory infection 81434777 J06.9 rest, tylenol prn, humidifier , vitamin c, etc [id number] [facility] (Peds) [address] [place] [address] 07/03/2017 15:02:01 07/04/2017 11:26:23 Well child 008289276 Z00.129 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 Active or passive immunization 267134781 Z23 [id number] Gillian Renee MA [facility] (SENIOR C SOFTWARE ENGINEER) [address] [place] [address] 06/16/2020 11:03:13 06/17/2020 08:30:15 Contraception care management 438325608 Z30.9 control options discussed. Pt. wants either the Depo or pills. UPT was negative today. Pt. to call with decision re pills or Depo. If Depo, RTO 2 weeks for repeat UPT and Depo shot. If pills, pt. to start the Monday after her next period, dwp and mom. [id number] Rafaela Krishnamurthy [facility] (SENIOR C SOFTWARE ENGINEER) [address] [facility] [place] [address] 06/30/2020 11:33:32 07/01/2020 09:59:54 Insertion of subcutaneous contraceptive 751174936 Z30.9 Benefits, risks, and alternativ es to Nexplanon insertion d/w pt. Pt. expressed understand ing. All pt. questions answered. Consent signed and in chart. UPT was negative 2 weeks ago and today. Nexplanon inserted per protocol and without difficulty . Please see procedure note for details. Pt. tolerated the procedure well. RTO 2 weeks for follow-up. [id number] Jerson Galvanmarshall Lindquist (Peds) [address] [place] [address] 07/28/2020 11:46:19 08/03/2020 04:29:14 Allergic rhinitis 30362782 J30.9 Impacted c erumen in left ear 8361807379 694130 H61.22 [id number] MD Ameena Roblero (Peds) [address] [place] [address] 01/13/2021 15:22:13 01/14/2021 11:48:52 Immunization due 093902460 Z28.3 Well child visit 7414511 09 Z00.129 discussed routine adolescent carediscus sed safety and school performanc ediscussed healthy weight declined covid Diet education 38233925 Z71.3 Exercises education, guidance, and counseling 556495954 Z71.82 [id number] MD Ameena Roblero (Peds) [address] [place] [address] 02/15/2021 15:16:13 02/17/2021 07:23:54 Immunization due 232130944 Z28.3 Contact dermatitis 19187 004 L25.9 Tinea corporis 03042765 B35.4 Mass of chest wall 42175 4000 R22.2 left lower rib cage, non painful, suspect it's the shape of pt's ribs. no h/o trauma [id number] MD Ameena PIÑA (SENIOR C SOFTWARE ENGINEER) [address] [place] [address] 09/20/2022 11:57:31 09/22/2022 10:42:59 Break-through bleeding 10202490 N92.1 - Will trial medroxypro gesterone 10 mg daily x3 weeks to suppress bleeding Dysmenorrhea 462482360 N 94.6 - Recommende d ibuprofen 600 mg every 6 hours with food at start of menstrual bleeding to decrease pain as well as duration of bleeding Surveillan ce of subcutaneous contraceptive implant 506295813 Z30.46 - Return to clinic 06/2023 for Nexplanon removal and replacemen t [id number] MD Ameena PIÑA (SENIOR C SOFTWARE ENGINEER) [address] [place] [address] 03/09/2023 12:09:45 03/10/2023 11:44:01 Break-through bleeding 54967078 N92.1 - Will manage unschedule d bleeding on Nexplanon with OCPs until able to come in for Nexplanon removal and replacemen t Dysmenorrhea 012341178 N 94.6 - Recommende d ibuprofen 600 mg every 6 hours with food at start of menstrual bleeding to decrease pain as well as duration of bleeding [id number] MD Jodi PIÑAhalto (SENIOR C SOFTWARE ENGINEER) [address] [place] [address] 07/06/2023 12:07:17 07/10/2023 12:29:59 Insertion of subcutaneous contraceptive 258373141 Z30.46 - Nexplanon removed and replaced without incident- Return to clinic in 3 years for removal/re placement [id number] MD Ameena PIÑA (SENIOR C SOFTWARE ENGINEER) [address] [place] [address] 09/21/2023 09:41:39 10/11/2023 12:57:31 Chest wall pain 230653856 R07.89 - Tenderness to palpation reassuring for MSK etiology - likely pectoralis muscle strain- 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 shortly after Nexplanon was [...] Braxton Member ID Guarantor Name 02/15/2021 1 [place]: [place] [employer] Pamela Molina [id number] Pamela Molina 09/20/2022 1 [facility] (MEDICAID HMO) [id number] 0003 Pamela Molina [id number] Pamela Molina 03/09/2023 1 [facility] (MEDICAID HMO) [id number] Pamela Molina [id number] Pamela Molina 07/06/2023 1 [facility] (MEDICAID HMO) [id number] 0003 Pamela Molina [id number] Pamela Molina 09/21/2023 1 [facility] (MEDICAID HMO) [id number] 0003 Pamela Molina [id number] Pamela Molina Notes Date Note Type Note Provider Name and Address Organization Details Recorded Time 02/15/2021 text/html 15 year old femcarmen le sick visit. Reports of circular rash on left ankle, left calf and right elbow [id number]. lesions are non painful and not puritic. No known new exposures. pt also has concernes about mass at bottom of left rib cage that has always been present and is non painful. No trauma. hs not tried any measures for the rashes. Malu Florentino MD Attn: Accounting,[address] [facility], [place], [address], [facility] 02/15/2021 15:59:42 09/20/2022 text/html Nexplanon break-through bleeding- [...] pain medicine WENDI SINGH MD Attn: Accounting,[address] [facility], [place], [address], [facility] - [facility] 09/20/2022 12:35:12 03/09/2023 text/html Breakthrough bleeding on Nexplanon- No bleeding on MDPA, then started period when medication ran out. [place] that mood was better on MDPA as [...] of migraines WENDI SINGH MD Attn: Accounting,[address] [facility], [place], [address], [facility] 03/09/2023 14:16:39 07/06/2023 text/html Nexplanon replacement- Nexplanon due for replacement WENDI SINGH MD Attn: Accounting,[address] [facility], [place], [address], [facility] 07/06/2023 13:03:27 09/21/2023 text/html Left chest pain- [...] Hirsch, S-III WENDI SINGH MD Attn: Accounting,[address] [facility], [place], [address], [facility] 10/09/2023 16:29:36 OBGyn Episode No OBEpisode recorded.
--- OUTSIDE RECORDS SUMMARY | 2024-05-27 17:26 | XMS_ITS | Referral Summary ---
Author Organization [facility] Address [address] [place] [address] Care Team Providers Care Perioperative Nurse Name Role Phone Jose Florentino MD Primary [...] 03/29/2023 Assessment & Plan (04/06/2023 9:32 AM LPN MEDICAL ASSISTANT): Avoid ear cleaning techniques Avoid water to ears Finish oral antibiotics Continue ear drops in the Left ear for one more week Follow up as needed Homemade swimmer's ear recipe provided Assessment & Plan (03/29/2023 11:18 AM LPN MEDICAL ASSISTANT): Increase Ciprodex drops to 7-10 drops into [...] on file Legal Sex Female 9:09 AM LPN MEDICAL ASSISTANT Gender Identity Not on file Sexual Orientation Not on file Last Filed Vital Signs Vital Sign Reading Time Taken Comments Blood Pressure 111/76 04/06/2023 9:17 AM LPN MEDICAL ASSISTANT Pulse 69 04/06/2023 9:17 AM LPN MEDICAL ASSISTANT Temperature 36.5 C (97.7 F) 04/06/2023 9:17 AM LPN MEDICAL ASSISTANT Respiratory Rate 16 03/27/2023 12:54 PM LPN MEDICAL ASSISTANT Oxygen Saturation 98% 04/06/2023 9:17 AM LPN MEDICAL ASSISTANT Inhaled Oxygen Concentration - - Weight 61.4 kg (135 lb 6.4 oz) 04/06/2023 9:17 A M LPN MEDICAL ASSISTANT Height 162.6 cm (5' 4.02 ) 04/06/2023 9:17 AM CS T Body Mass Index 23.23 04/06/2023 9:17 AM LPN MEDICAL ASSISTANT Plan of Treatment Not on file Insurance Care Teams Perioperative Nurse Relationship Specialty Start Date End Date Jose Florentino MD [address] [place] [address] PCP - General Pediatrics 03/27/23
--- OUTSIDE RECORDS SUMMARY | 2024-05-27 17:26 | XMS_ITS | Clinical Summary ---
Author Organization [facility] Address [address] [place] [address] Care Team Providers Care Field Operations Farm Manager Name Role Phone Jose Florentino MD Primary [...] 03/29/2023 Assessment & Plan (04/06/2023 9:32 AM BACCARAT MANAGER): Avoid ear cleaning techniques Avoid water to ears Finish oral antibiotics Continue ear drops in the Left ear for one more week Follow up as needed Homemade swimmer's ear recipe provided Assessment & Plan (03/29/2023 11:18 AM BACCARAT MANAGER): Increase Ciprodex drops to 7-10 drops into [...] on file Legal Sex Female 9:09 AM BACCARAT MANAGER Gender Identity Not on file Sexual Orientation Not on file Obstetrics History Last Filed Vital Signs Vital Sign Reading Time Taken Comments Blood Pressure 111/76 04/06/2023 9:17 AM BACCARAT MANAGER Pulse 69 04/06/2023 9:17 AM BACCARAT MANAGER Temperature 36.5 C (97.7 F) 04/06/2023 9:17 AM BACCARAT MANAGER Respiratory Rate 16 03/27/2023 12:54 PM BACCARAT MANAGER Oxygen Saturation 98% 04/06/2023 9:17 AM BACCARAT MANAGER Inhaled Oxygen Concentration - - Weight 61.4 kg (135 lb 6.4 oz) 04/06/2023 9:17 A M BACCARAT MANAGER Height 162.6 cm (5' 4.02 ) 04/06/2023 9:17 AM CS T Body Mass Index 23.23 04/06/2023 9:17 AM BACCARAT MANAGER Plan of Treatment Health Maintenance Due Date [...] Meningococcal B Vaccine Completed 02/15/2021, 01/13 Insurance [facility] Care Teams Field Operations Farm Manager Relationship Specialty Start Date End Date Jose Florentino MD [address] [place] [address] PCP - General Pediatrics 03/27/23
[2024-05-27 19:40] LABS: Free T4 Free Thyroxine 1.24 ng/dL (0.78-2.19)
== END 2024-05-27 14:46 | disposition home or self-care (01) ==
LOC: ANHGOSHLAB 14:46
PROVIDERS: PCP Nurse Practitioner; Visit Provider Nurse Practitioner
DX: R79.89 Other specified abnormal findings of blood chemistry (principal)
CPT/HCPCS: 36415; 84439; 84443